=== PATIENT | male | born 1990 | race Caucasian/White ===

== ENCOUNTER 2020-09-09 18:50 | Emergency (ER) | payer MEDICAID, OTHER ==
[2020-09-09] MEDS ORDERED: Lidocaine/EPINEPHrine/Tetracaine Soln 5 ML Each TOP ONE (19:15)
--- NOTE | 2020-09-09 19:25 | EDM.PDOC ---
ED HPI GENERAL MEDICAL PROBLEM - General Chief Complaint: General Stated Complaint: head laceration Time Seen by Provider: 09/09/20 19:24 Source of Information: Reports: Patient - History of Present Illness INITIAL COMMENTS - FREE TEXT/NARRATIVE: Sancho, 30-year-old male, chilango was smoking a turkey on his porch at his residence. He went outside to check on this and slipped causing him to fall after losing his balance. Unfortunately he has no railing on his porch yielding him falling onto the frozen ground. He struck the right side of his head and occipital region with no loss of consciousness. He denies any dizziness, headache, or difficulty in function. Had significant bleeding from his right ear as well as the scalp which was controlled by the time of his arrival to the emergency department. He believes he is up-to-date on his tetanus being less than 8 years but will confirm this with his as well as his clinic by Saturday. Denies any contributing factors. Onset: Today, Sudden Location: Reports: Head Quality: Reports: Ache Severity: Moderate Improves with: Reports: None Worsens with: Reports: None Context: Reports: Activity Past Medical History - Past Health History Medical/Surgical History: Denies Medical/Surgical History Social & Family History - Family History Family Medical History: No Pertinent Family History - Tobacco Use Tobacco Use Status *Q: Former Tobacco User Tobacco Use Within Last Twelve Months: No Month/Year Tobacco Last Used: 10? Smoking Cessation Information Provided To Patient: No - Caffeine Use Caffeine Use: Reports: Coffee - Alcohol Use Alcohol Use History: Yes - Recreational Drug Use Recreational Drug Use: No - Sexual History Sexual History: Reports: Single Partner - Living Situation & Occupation Living situation: Reports: , with Family ED ROS GENERAL - Review of Systems Review Of Systems: Comprehensive ROS is negative, except as noted in HPI. ED EXAM, GENERAL - Physical Exam Exam: See Below Free Text/Narrative:: Alert, oriented, in no acute distress with no cyanosis nor pallor noted. HEENT shows a jagged laceration 3 cm to the superior occipital region with no bleeding at this time. There is no contaminant nor debris. There is a flap 0.5 cm to the superior portion of the helix of the right ear with no active bleeding. PERRLA no icterus no injection. Neck soft supple no lymphadenopathy. There is no respiratory distress. Able to speak in full sentences with no discomfort nor shortness of breath exhibited. Cardiac is regular radial pulse present and correlating. Focused examination to the scalp shows there is some hair inside the abraised tearing type laceration of the scalp. A nice clean laceration to the superior portion of the auricle is noted. ED GENERAL MEDICAL PROCEDURES - Laceration/Wound Repair Occipital Lac/wound length in cm: 3 Appearance: Irregular, Clean Distal NVT: Neuro & Vascular Intact Anesthetic Type: Other (Let solution) Local Anesthesia - Lidocaine (Xylocaine): Other (Let solution) Closed with: Belkis # of Sutures: 6 Right Upper Ear Lac/wound length in cm: 0.5 Appearance: Clean Distal NVT: Neuro & Vascular Intact Anesthetic Type: Local Local Anesthesia - Lidocaine (Xylocaine): 2% Plain Local Anesthetic Volume: 1cc Skin Prep: Chlorhexidine (Hibiciens) Exploration/Debridement/Repair: No Foreign Material Found Closed with: Sutures Suture Size: 6-0 # of Sutures: 4 Suture Type: Nylon Course - Orders/Labs/Meds Meds: Medications Discontinued Medications Generic Name Dose Route Start Last Admin Trade Name Linsey PRN Reason Stop Dose Admin Lidocaine Confirm 09/09/20 19:34 Xylocaine-Mpf 2% Administered 09/09/20 19:35 Dose 5 ml .ROUTE .STK-MED ONE - Re-Assessments/Exams Free Text/Narrative Re-Assessment/Exam: 09/09/20 20:11 Tolerate belkis with topical stating he felt a sting only. Ear was infiltrated with 2% lidocaine no epinephrine and 4 interrupted sutures placed to which he did not notice any placement. Departure - Departure Time of Disposition: 19:55 Disposition: Home, Self-Care 01 Condition: Good Clinical Impression: Laceration of scalp, Laceration of ear without foreign body - Discharge Information *PRESCRIPTION DRUG MONITORING PROGRAM REVIEWED*: Not Applicable *COPY OF PRESCRIPTION DRUG MONITORING REPORT IN PATIENT STEPHANIE: Not Applicable Instructions: Sutures, Arroyo, or Adhesive Wound Closure, [id number], Sutured Wound Care, [id number] Referrals: Leila Good PA-C [Primary Care Provider] - Forms: ED Department Discharge Additional Instructions: You may shower, but avoid soaking. You may take ibuprofen or Tylenol for pain fever, or swelling. You need to have stitches removed in 7 days contact the clinic of your choice for removal of belkis and stitches on 15 September. Contact your clinic or discussed with your , when your last tetanus shot was as they are good for 10 years. Follow-up as needed with clinic or return to the emergency department over the weekend. You may apply ice to the area to control swelling. - Problem List & Annotations (1) Laceration of scalp SNOMED Code(s): 148423396 Code(s): S01.01XA - LACERATION WITHOUT FOREIGN BODY OF SCALP, INITIAL ENCOUNTER Status: Acute Priority: High Qualifiers: Encounter type: initial encounter Qualified Code(s): S01.01XA - Laceration without foreign body of scalp, initial encounter (2) Laceration of ear without foreign body SNOMED Code(s): 332662269 Code(s): S01.319A - LACERATION WITHOUT FOREIGN BODY OF UNSP EAR, INIT ENCNTR Status: Acute Priority: High Qualifiers: Encounter type: initial encounter Laterality: right Qualified Code(s): S01.311A - Laceration without foreign body of right ear, initial encounter - Assessment/Plan Plan: You may shower, but avoid soaking. You may take ibuprofen or Tylenol for pain fever, or swelling. You need to have stitches removed in 7 days contact the clinic of your choice for removal of belkis and stitches on 15 September. Contact your clinic or discussed with your , when your last tetanus shot was as they are good for 10 years. Follow-up as needed with clinic or return to the emergency department over the weekend. You may apply ice to the area to control swelling.
[2020-09-09] MEDS ORDERED: Lidocaine 2% 5 ML SDV INJECT ONE (19:34)
[2020-09-09] MEDS ORDERED: Lidocaine 2% 5 ML SDV ONE (19:34)
== END 2020-09-09 20:06 | disposition home or self-care (01) ==
LOC: KA.ED 18:50
DX: S01.01XA Laceration without foreign body of scalp, initial encounter (principal); S01.311A Laceration without foreign body of right ear, initial encounter; Z87.891 Personal history of nicotine dependence; W01.198A Fall on same level from slipping, tripping and stumbling with subsequent striking against other object, initial encounter; Y92.009 Unspecified place in unspecified non-institutional (private) residence as the place of occurrence of the external cause
CPT/HCPCS: 12002; 12011; 99282-25; 99283; A9270-GY; J2001